=== PATIENT | female | born 1945 | race Caucasian/White ===

== ENCOUNTER → 2022-04-07 14:56 | Outpatient (CLI) | payer MEDICARE, MEDICAID, SELFPAY ==
--- NOTE | 2022-04-07 | DI.ECHO.S_ITS ---
[place] +---------+ [facility] +---------+ : : [address] : [address] : : : : [id number] : : : : Phone: [phone]---------+ Echocardiogram Report + + :Name: MAIA JOSEPH Study Date: 04/07/2022 Height: 56 in : :[facility] ReadingLocation: Weight: 120 lb : : Gender: Female BSA: 1.4 m2 : :: 1945 Age: 77 yrs BP: 126/75 mmHg: :Reason For Study: DYSPNEA : :Ordering Physician: JANNETTE, : :RJ Pina Performed By: Gisele Rincon : :Referring: RJ BHATIA : + + Interpretation Summary The left ventricle is normal in size. Left ventricular wall thickness is mildly increased. Left ventricular systolic function is low normal. The ejection fraction is estimated to be 50-55%. There are no focal wall motion abnormalities. Diastolic parameters suggest a relaxation abnormality of the left ventricle, consistent with probable normal filling pressures. The right ventricle is normal in size and function. The right ventricular systolic pressure is estimated to be at least 23 mmHg based on an estimated right atrial pressure of 3 mm Hg. Borderline left atrial enlargement. Right atrial size is normal. There is mild mitral regurgitation. There is mild to moderate aortic stenosis. The peak aortic velocity is 2.75 m/sec. The calculated aortic valve area is 1.3 cm2. There is mild to moderate aortic regurgitation. There is no other significant valvular heart disease. The ascending aorta is mild-moderately enlarged. Procedure: A two-dimensional transthoracic echocardiogram with color flow and Doppler was performed. The study quality was technically adequate. There is no prior echocardiogram noted for this patient. Left Ventricle: The left ventricle is normal in size. Left ventricular wall thickness is mildly increased. Left ventricular systolic function is low normal. The ejection fraction is estimated to be 50-55%. There are no focal wall motion abnormalities. Diastolic parameters suggest a relaxation abnormality of the left ventricle, consistent with probable normal filling pressures. Right Ventricle: The right ventricle is normal in size and function. Atria: Borderline left atrial enlargement. Right atrial size is normal. There is no Doppler evidence for an interatrial shunt. Mitral Valve: The mitral valve is normal in structure and function. There is mild mitral regurgitation. Aortic Valve: The aortic valve is not well visualized. The aortic valve is mildly calcified. There is mild to moderate aortic stenosis. The peak aortic velocity is 2.75 m/sec. The aortic valve mean gradient is 16 mmHg. The calculated aortic valve area is 1.3 cm2. There is mild to moderate aortic regurgitation. Tricuspid Valve: The tricuspid valve is normal in structure and function. There is mild tricuspid regurgitation. The right ventricular systolic pressure is estimated to be at least 23 mmHg based on an estimated right atrial pressure of 3 mm Hg. Pulmonic Valve: The pulmonic valve is not well visualized. There is no pulmonic valvular regurgitation. There is no other significant valvular heart disease. Great Vessels: The aortic root is normal size. The ascending aorta is mild- moderately enlarged. The IVC is of normal diameter and collapses greater than 50% with a sniff. This suggests a low right atrial pressure of 3 mm Hg. Pericardium/ Pleura There is no pericardial effusion. There is no pleural effusion. MMode/2D Measurements & Calculations LVIDd: 4.4 cm LVOT diam: 2.0 cm LVIDs: 3.2 cm Ao root diam: 3.6 cm FS: 25.8 % asc Aorta Diam: 4.0 cm IVSd: 0.99 cm Ao Arch Diam (Prox Trans): 3.3 cm LVPWd: 1.1 cm LV whyte. diameter/BSA (cm/m^2): 3.0 LV sys. diameter/BSA (cm/m^2): 2.3 LA A2 area: 18.4 cm2 RA long axis: 4.3 cm LA A4 area: 14.8 cm2 RA area: 12.3 cm2 LA length (vol): 4.9 cm RA vol: 29.8 ml LA vol: 47.3 ml RA : 20.9 ml/m2 LA vol index: 33.1 ml/m2 IVC diam: 1.1 cm RVD1 (basal): 2.9 cm RVD2 (mid): 2.4 cm TAPSE: 1.9 cm Doppler Measurements & Calculations Ao V2 max: 275.4 cm/sec LVOT Max Manuel: 110.9 cm/sec Ao V2 mean: 172.6 cm/sec LV V1 max P.9 mmHg Ao max P.9 mmHg LV V1 VTI: 22.5 cm Ao mean P.5 mmHg MOUNA(I,D): 1.5 cm2 Ao V2 VTI: 47.2 cm MOUNA(V,D): 1.3 cm2 sev ratio: 0.48 MOUNA indexed to BSA (cm^2/m^2): 1.0 MV E max manuel: 89.6 cm/sec TR max manuel: 224.0 cm/sec MV A max manuel: 98.1 cm/sec TR max P.1 mmHg MV E/A: 0.91 PA pr(Accel): 25.9 mmHg Med Peak E' Manuel: 5.7 cm/sec E/E' med: 15.7 Lat Peak E' Manuel: 6.7 cm/sec E/E' lat: 13.4 E/e' average: 14.6 MV dec time: 0.23 sec SV(LVOT): 70.8 ml Reading Physician:07:52 PM
== END ==
PROVIDERS: Referring Provider Family Medicine; Visit Provider Family Medicine
DX: R06.09 Other forms of dyspnea (principal); I08.3 Combined rheumatic disorders of mitral, aortic and tricuspid valves; I77.89 Other specified disorders of arteries and arterioles
CPT/HCPCS: 93306